=== PATIENT | female | born 1995 | race African-American/Black ===

== ENCOUNTER 2017-11-21 14:20 | Emergency (ER) | payer SELFPAY ==
[~2017-11-21 14:20] MED LIST: AUGM875T PO; PRED50 PO
[2017-11-21 14:25] VITALS: BP 138/84; PULSE 75; RESP 18; TEMP 99.1; O2SAT 100
[2017-11-21] MEDS ORDERED: SODIUM CHLOR 0.9% 1000 ML INJ 1,000 ML IV ONE (15:47)
--- NOTE | 2017-11-21 15:53 | PD ---
HPI Chief Complaint: GI Complaint Time Seen by Provider: 15:21 Travel History International Travel<30 days: No Contact w/Intl Traveler<30days: No Traveled to known affect area: No History of Present Illness HPI Patient is a 21-year-old female who presents the emergency room for evaluation of possible . Patient reports that she had her menstrual cycle 2 weeks ago and has had residual spotting for the past 2 weeks. Reports concern that she may be , she has not taken any tests at home. Reports that she has been feeling very nauseous and been vomiting. Reports that she has been vomiting so much, sometimes she sees specks of red blood in her mucus. Patient reports that she also has been having diarrhea. Patient with no fever or chills, no sick contacts. Patient with no abdominal pain at this time. PFSH Past Medical History Asthma: Yes (as a child) Cardiovascular Problems: Yes (HEART MURMER A CHILD ) Cerebrovascular Accident: No Diabetes: No Diminished Hearing: No Gout: Yes Immunizations Current: Yes Myocardial Infarction: No ?: Unknown Past Surgical History Surgical History: No Previous Surgery Social History Alcohol Use: Yes (OCC) Tobacco Use: No Substance Use: No Allergies-Medications (Allergen,Severity, Reaction): Coded Allergies: No Known Allergies (Verified , 11/14/15) Reported Meds & Prescriptions Reported Meds & Active Scripts Active Deltasone 50 Mg Tab (Prednisone) 50 Mg Tab 50 Mg PO DAILY Augmentin 875 mg Tab (Amoxicillin & Pot Clavulanate 875 mg Tab) 875 Mg Tab 1 Tab PO BID 10 Days Review of Systems General / Constitutional: No: Fever Eyes: No: Visual changes HENT: No: Headaches Cardiovascular: No: Chest Pain or Discomfort Respiratory: No: Shortness of Breath Gastrointestinal: Positive: Nausea, Vomiting, Diarrhea, No: Abdominal Pain Genitourinary: No: Dysuria, Pelvic Pain, Discharge, Vaginal Bleeding Musculoskeletal: No: Pain Skin: No Rash Neurologic: No: Weakness Psychiatric: No: Depression Endocrine: No: Polydipsia Hematologic/Lymphatic: No: Easy Bruising Physical Exam Narrative GENERAL: NAD SKIN: Focused skin assessment warm/dry. HEAD: Atraumatic. Normocephalic. EYES: No injection or drainage. ENT: No nasal bleeding or discharge. Mucous membranes pink and moist. NECK: Trachea midline. No JVD. CARDIOVASCULAR: Regular rate and rhythm. No murmur appreciated. RESPIRATORY: No accessory muscle use. Clear to auscultation. Breath sounds equal bilaterally. GASTROINTESTINAL: Abdomen soft, non-tender, nondistended. Hepatic and splenic margins not palpable. MUSCULOSKELETAL: No obvious deformities. No clubbing. No cyanosis. No edema. NEUROLOGICAL: Awake and alert. No obvious cranial nerve deficits. Motor grossly within normal limits. Normal speech. PSYCHIATRIC: Appropriate mood and affect; insight and judgment normal. Data Data Last Documented VS Vital Signs Date Time Temp Pulse Resp B/P (MAP) Pulse Ox O2 Delivery O2 Flow Rate FiO2 11/21/17 14:25 99.1 75 18 138/84 (102) 100 Orders Orders Ed Urine Pregnancytest Poc (11/21/17 15:21) Beta Hcg (Quant/Titer) (11/21/17 15:47) Complete Blood Count With Diff (11/21/17 15:47) Comprehensive Metabolic Panel (11/21/17 15:47) Urinalysis - C+S If Indicated (11/21/17 15:47) Iv Access Insert/Monitor (11/21/17 15:47) Ecg Monitoring (11/21/17 15:47) Sodium Chloride 0.9% Flush (Ns Flush) (11/21/17 16:00) Sodium Chlor 0.9% 1000 Ml Inj (Ns 1000 M (11/21/17 15:47) Labs Laboratory Tests Test 11/21/17 16:30 [facility] Medical Decision Making Medical Screen Exam Complete: Yes Emergency Medical Condition: Yes Medical Record Reviewed: Yes Interpretation(s) Vital Signs Date Time Temp Pulse Resp B/P (MAP) Pulse Ox O2 Delivery O2 Flow Rate FiO2 11/21/17 14:25 99.1 75 18 138/84 (102) 100 Differential Diagnosis , electrolyte abnormality, UTI, gastritis, gastroenteritis Narrative Course During the course of the patients emergency department visit, the patients history, examination, and differential diagnosis were reviewed with the patient. The patient was placed on a cardiac catheterization technician with oximetry and frequent blood pressure monitoring. The patient had an IV access obtained and blood work sent for analysis. The patient was initially provided IVF as well as IV zofran patient signed out to oncoming physician at change of shift Shelly Leblanc DO November 21, 2017 15:53
[2017-11-21] MEDS ORDERED: SODIUM CHLORIDE 0.9% FLUSH 10 ML FLUSH IVF PRN (16:00)
[2017-11-21 17:04] LABS: AUTOMATED NEUTROPHIL # 3.2 TH/MM3 (1.8-7.7); BASOPHIL % 0.3 % (0.0-2.0); EOSINOPHIL % 0.6 % (0.0-4.0); HEMATOCRIT 37.4 % (35.0-46.0); HEMOGLOBIN 13.1 GM/DL (11.6-15.3); LYMPH % 50.4 % (9.0-44.0); MEAN CELL VOLUME 83.5 FL (80.0-100.0); MEAN CORPUSCULAR HEMOGLOBIN 29.3 PG (27.0-34.0); MEAN CORPUSCULAR HGB CONC 35.1 % (32.0-36.0); MONO % 8.1 % (0.0-8.0); MONOCYTE # 0.6 TH/MM3 (0-0.9); NEUT % 40.6 % (16.0-70.0); PLATELET COUNT 214 TH/MM3 (150-450); RED BLOOD COUNT 4.48 MIL/MM3 (4.00-5.30); RED CELL DISTRIBUTION WIDTH 14.4 % (11.6-17.2)
--- NOTE | 2017-11-21 17:17 | PD ---
Physical Exam Narrative Received sign out from previous team to follow up labs and reevaluate. 21yo F here wanting to check if she is since her menstrual period has been irregular. Pt also complained of black stool for a week. Hemaprompt negative and rectal showed yellow stool. Had vomiting prior to coming but no longer nauseous. Denies any abdominal pain. Labs reviewed, no leukocytosis. H /H normal. CMP unremarkable. negative. UA showed moderate leukocyte. WBC 20. Will give antibiotics for UTI. Urine negative. Data Data Last Documented VS Vital Signs Date Time Temp Pulse Resp B/P (MAP) Pulse Ox O2 Delivery O2 Flow Rate FiO2 11/21/17 14:25 99.1 75 18 138/84 (102) 100 Orders Orders Ed Urine Pregnancytest Poc (11/21/17 15:21) Beta Hcg (Quant/Titer) (11/21/17 15:47) Complete Blood Count With Diff (11/21/17 15:47) Comprehensive Metabolic Panel (11/21/17 15:47) Urinalysis - C+S If Indicated (11/21/17 15:47) Iv Access Insert/Monitor (11/21/17 15:47) Ecg Monitoring (11/21/17 15:47) Sodium Chloride 0.9% Flush (Ns Flush) (11/21/17 16:00) Sodium Chlor 0.9% 1000 Ml Inj (Ns 1000 M (11/21/17 15:47) Urine Culture (11/21/17 16:30) Labs Laboratory Tests Test 11/21/17 16:30 White Blood Count 8.0 TH/MM3 Red Blood Count 4.48 MIL/MM3 Hemoglobin 13.1 GM/DL Hematocrit 37.4 % Mean Corpuscular Volume 83.5 FL Mean Corpuscular Hemoglobin 29.3 PG Mean Corpuscular Hemoglobin Concent 35.1 % Red Cell Distribution Width 14.4 % Platelet Count 214 TH/MM3 Mean Platelet Volume 8.0 FL Neutrophils (%) (Auto) 40.6 % Lymphocytes (%) (Auto) 50.4 % Monocytes (%) (Auto) 8.1 % Eosinophils (%) (Auto) 0.6 % Basophils (%) (Auto) 0.3 % Neutrophils # (Auto) 3.2 TH/MM3 Lymphocytes # (Auto) 4.0 TH/MM3 Monocytes # (Auto) 0.6 TH/MM3 Eosinophils # (Auto) 0.0 TH/MM3 Basophils # (Auto) 0.0 TH/MM3 CBC Comment DIFF FINAL Differential Comment Urine Color YELLOW Urine Turbidity CLEAR Urine pH 7.0 Urine Specific [place] 1.031 Urine Protein 30 mg/dL Urine Glucose (UA) NEG mg/dL Urine Ketones TRACE mg/dL Urine Occult Blood NEG Urine Nitrite NEG Urine Bilirubin NEG Urine Urobilinogen 4.0 MG/DL Urine Leukocyte Esterase MOD Urine RBC 11 /hpf Urine WBC 20 /hpf Urine Squamous Epithelial Cells 3 /hpf Urine Bacteria OCC /hpf Urine Mucus FEW /lpf Microscopic Urinalysis Comment CULTURE INDICATED Blood Urea Nitrogen 11 MG/DL Creatinine 0.83 MG/DL Random Glucose 79 MG/DL Total Protein 7.1 GM/DL Albumin 3.6 GM/DL Calcium Level 8.9 MG/DL Alkaline Phosphatase 37 U/L Aspartate Amino Transf (AST/SGOT) 11 U/L Alanine Aminotransferase (ALT/SGPT) 14 U/L Total Bilirubin 0.5 MG/DL Sodium Level 140 MEQ/L Potassium Level 4.0 MEQ/L Chloride Level 104 MEQ/L Carbon Dioxide Level 27.1 MEQ/L Anion Gap 9 MEQ/L Estimat Glomerular Filtration Rate 105 ML/MIN Human Chorionic Gonadotropin, Quant LESS THAN 1 MIU/ML MDM Supervised Visit with RUTH: No Diagnosis Primary Impression: UTI (urinary tract infection) Qualified Codes: N39.0 - Urinary tract infection, site not specified Patient Instructions: General Instructions Departure Forms: Tests/Procedures Additional Instruction: Please follow up with your primary care physician in 2-3 days. Return to the ED if symptoms worsen. Med/Other Pt SpecificInfo: Prescription(s) given Scripts Sulfamethoxazole-Trimethoprim (Bactrim DS) 800-160 Mg Tab 1 TAB PO BID for Infection, #14 TAB 0 Refills Prov: Beth Redman 11/21/17 Disposition: 01 DISCHARGE HOME Condition: Stable RedmnaBeth DO November 21, 2017 17:17
[2017-11-21 17:33] LABS: ALBUMIN 3.6 GM/DL (3.4-5.0); AST (GOT) 11 U/L (15-37); BICARBONATE 27.1 MEQ/L (21.0-32.0); BLOOD UREA NITROGEN 11 MG/DL (7-18); CALCIUM 8.9 MG/DL (8.5-10.1); CHLORIDE 104 MEQ/L (98-107); CREATININE 0.83 MG/DL (0.50-1.00); GLOMERULAR FILTRATION RATE 105 ML/MIN (>89); GLUCOSE,RANDOM 79 MG/DL (74-106); SODIUM (NA) 140 MEQ/L (136-145)
[2017-11-21 17:34] LABS: ALT (GPT) 14 U/L (10-53)
[2017-11-21 17:36] LABS: BACTERIA, URINE OCC /hpf; BILIRUBIN, URINE NEG (NEG); BLOOD, URINE NEG (NEG); GLUCOSE,URINE NEG (NEG); KETONE, URINE TRACE mg/dL (NEG); MUCUS URINE FEW /lpf (OCC); NITRITE,URINE NEG (NEG); SQUAMOUS EPITHELIAL CELL URINE 3 /hpf (0-5); URINE COLOR YELLOW (YELLW/STRAW); URINE LEUKOCYTE ESTERASE MOD (NEG)
[2017-11-21 17:38] LABS: ALKALINE PHOSPHATASE 37 U/L (45-117); TOTAL BILIRUBIN ADULT 0.5 MG/DL (0.2-1.0); TOTAL PROTEIN 7.1 GM/DL (6.4-8.2)
[2017-11-21] MEDS ORDERED: BACT800T5 PO (19:02)
== END 2017-11-21 19:15 | disposition home or self-care (01) ==
LOC: NEPD 14:20
DX: N39.0 Urinary tract infection, site not specified (principal)
CPT/HCPCS: 80053; 81001; 84702; 84703; 85025; 87086; 99283; J7030